=== PATIENT | male | born 1955 | race Caucasian/White ===

== ENCOUNTER 2020-07-27 15:32 | Emergency (ER) | payer OTHER ==
[~2020-07-27] VITALS: Ht 188 cm; Wt 99.7 kg
[2020-07-27] MEDS ORDERED: KETOROLAC 30 MG/ML VIAL. ONE (15:41)
[2020-07-27] MEDS ORDERED: ONDANSETRON PF 4 MG/2 ML VIAL. ONE (15:41)
[2020-07-27 17:35] LABS: BILIRUBIN,URINE NEG (NEG); CLARITY,URINE CLEAR; COLOR,URINE YELLOW; GLUCOSE,URINE NEG (NEG)
[2020-07-27 17:36] LABS: NITRITE,URINE NEG (NEG); UROBILINOGEN,URINE 0.2 mg/dL (0.2 mg/dL)
[2020-07-27 17:38] LABS: BACTERIA,URINE 0 /HPF (0-FEW); RBC,URINE 20-40 /HPF (0-2); WBC,URINE >40 /HPF (0-4)
[2020-07-27] MEDS ORDERED: CEPH500T PO (17:56)
--- NOTE | 2020-07-27 17:56 | PHYS DOC ---
General Adult EDM: Chief Complaint: PAIN ON URINATION HPI: HPI: 65-year-old male presents with increased urinary frequency. This started overnight. He has gone multiple times today which is unusual for him. He is type II diabetic. He has never had a kidney stone. He denies fever or chills. He has no pain. He has no other complaints this time. Review of Systems: Review of Systems: Constitutional: Denies fever or chills Eyes: Denies change in visual acuity HENT: Denies nasal congestion or sore throat Respiratory: Denies cough or shortness of breath Cardiovascular: Denies chest pain or edema GI: Denies abdominal pain, nausea, vomiting, bloody stools or diarrhea : Dysuria, increased urinary frequency. Musculoskeletal: Denies back pain or joint pain Integument: Denies rash Neurologic: Denies headache, focal weakness or sensory changes Endocrine: Denies polyuria or polydipsia Lymphatic: Denies swollen glands Psychiatric: Denies depression or anxiety Current Medications: Current Meds: Current Medications Medications (Trade) Dose Ordered Sig/Tomasz Start Time Stop Time Status Last Admin Dose Admin Ketorolac Tromethamine (Toradol 30mg Vial) 30 mg STK-MED ONCE 07/27/20 15:41 07/27/20 15:41 DC Ondansetron HCl (Zofran) 4 mg STK-MED ONCE 07/27/20 15:41 07/27/20 15:41 DC Allergies: Allergies: Allergies Coded Allergies Type Severity Reaction Last Updated Verified No Known Drug Allergies 07/27/20 No Physical Exam: PE: Constitutional: Well developed, well nourished, no acute distress, non-toxic appearance. [] HENT: Normocephalic, atraumatic, bilateral external ears normal, oropharynx moist, no oral exudates, nose normal. [] Eyes: PERRLA, EOMI, conjunctiva normal, no discharge. [] Neck: Normal range of motion, no tenderness, supple, no stridor. [] Cardiovascular: Heart rate regular rhythm, no murmur [] Lungs & Thorax: Bilateral breath sounds clear to auscultation [] Abdomen: Bowel sounds normal, soft, no tenderness, no masses, no pulsatile masses. [] Skin: Warm, dry, no erythema, no rash. [] Back: No tenderness, no CVA tenderness. [] Extremities: No tenderness, no cyanosis, no clubbing, ROM intact, no edema. [] Neurologic: Alert and oriented X 3, normal motor function, normal sensory function, no focal deficits noted. [] Psychologic: Affect normal, judgement normal, mood normal. [] Current Patient Data: Labs: Laboratory Tests Test 07/27/20 16:22 Urine Collection Type Unknown Urine Color Yellow Urine Clarity Clear Urine pH 6.0 Urine Specific [place] 1.025 Urine Protein Neg (NEG-TRACE) Urine Glucose (UA) Neg mg/dL (NEG) Urine Ketones (Stick) Neg mg/dL (NEG) Urine Blood Large (NEG) Urine Nitrite Neg (NEG) Urine Bilirubin Neg (NEG) Urine Urobilinogen Dipstick 0.2 mg/dL (0.2 mg/dL) Urine Leukocyte Esterase Small (NEG) Urine RBC 20-40 /HPF (0-2) Urine WBC >40 /HPF (0-4) Urine Squamous Epithelial Cells None /LPF Urine Bacteria 0 /HPF (0-FEW) EKG: EKG: [] Radiology/Procedures: Radiology/Procedures: [] Impressions: CT abdomen pelvis without contrast dated 07/27/2020. No comparison available. CLINICAL INDICATION: Blood in urine. TECHNIQUE: Contiguous axial imaging of the abdomen pelvis performed without the administration of IV or oral contrast. One or more of the following individualized dose reduction techniques were utilized for this examination: 1. Automated exposure control 2. Adjustment of the mA and/or kV according to patient size 3. Use of iterative reconstruction technique. FINDINGS: Limited images of lung bases are clear. Heart size is within normal limits. No pleural or pericardial effusion. Liver, spleen, pancreas, adrenal glands and gallbladder are unremarkable. Kidneys are symmetric in size. No stone or hydronephrosis. No inflammatory changes in the perinephric fat. Unopacified GI tract normal in caliber and contour. No bowel wall thickening. No inflammatory stranding in the mesentery. Appendix normal in caliber. No ascites or lymphadenopathy. Abdominal aorta normal in caliber. Images of pelvis show diffuse wall thickening of the urinary bladder. Prostate gland is moderately enlarged. No free fluid or pelvic lymphadenopathy. Bone windows show no acute finding. Mild multilevel spondylosis. IMPRESSION: 1. Diffuse wall thickening of the urinary bladder, nonspecific. Consider acute or chronic cystitis or intermittent bladder outlet obstruction. 2. Moderate prostatomegaly. 3. No renal stone or hydronephrosis. Electronically signed by: Maycol Grijalva MD (07/27/2020 6:07 PM) [id number] DICTATED AND SIGNED BY: MAYCOL GRIJALVA MD DATE: 07/27/201804 CC: CHRISS PETERSON DO; ASAEL MONCADA DO ~MTH0 0 Heart Score: C/O Chest Pain: N/A Risk Factors: Risk Factors: DM, Current or recent (<one month) smoker, HTN, HLP, family history of CAD, obesity. Risk Scores: Score 0 - 3: 2.5% MACE over next 6 weeks - Discharge Home Score 4 - 6: 20.3% MACE over next 6 weeks - Admit for Clinical Observation Score 7 - 10: 72.7% MACE over next 6 weeks - Early Invasive Strategies Course & Med Decision Making: Course & Med Decision Making Pertinent Labs and Imaging studies reviewed. (See chart for details) The patient's urinalysis has significant red and white blood cells. He has positive leukocyte esterase but negative nitrate. I will CT him to rule out kidney stone. I will treat the patient with Rocephin in the ED and Keflex for home. The patient CT scan is negative for kidney stone. He does have findings consistent with reactive cystitis and enlarged prostate. He is stable for discharge at this time. [] Maurilio Disclaimer: Maurilio Disclaimer: This electronic medical record was generated, in whole or in part, using a voice recognition dictation system. Departure Departure: Impression: Primary Impression: UTI (urinary tract infection) Qualified Codes: N30.01 - Acute cystitis with hematuria Disposition: HOME / SELF CARE / HOMELESS Condition: STABLE Referrals: ASAEL MONCADA DO (PCP) Patient Instructions: Urinary Tract Infection, [id number] Scripts Cephalexin (CEPHALEXIN) 500 Mg Tablet 1 TAB PO TID for UTI for 5 Days, #15 TAB Prov: CHRISS PETERSON DO 07/27/20 CHRISS PETERSON DO Jul 27, 2020 17:56
[2020-07-27] MEDS ORDERED: cefTRIAXone IM 1 GM VIAL IM ONE (18:00)
--- NOTE | 2020-07-27 18:09 | RAD ---
CT abdomen pelvis without contrast dated 07/27/2020. No comparison available. CLINICAL INDICATION: Blood in urine. TECHNIQUE: Contiguous axial imaging of the abdomen pelvis performed without the administration of IV or oral con trast. One or more of the following individualized dose reduction techniques were utilized for this examinat ion: 1. Automated exposure control 2. Adjustment of the mA and/or kV according to patient size 3. Use of iterative reconstruction technique. FINDINGS: Limited images of lung bases are clear. Heart size is within normal limits. No pleural or pericardial effusion. Liver, spleen, pancreas, adrenal glands and gallbladder are unremarkable. Kidneys are symmetric in size. No stone or hydronephrosis. No inflammatory changes in the perinephric fat. Unopacified GI tract normal in caliber and contour. No bowel wall thickening. No inflammatory strandi ng in the mesentery. Appendix normal in caliber. No ascites or lymphadenopathy. Abdominal aorta vanda l in caliber. Images of pelvis show diffuse wall thickening of the urinary bladder. Prostate gland is moderately en larged. No free fluid or pelvic lymphadenopathy. Bone windows show no acute finding. Mild multilevel spondylosis. IMPRESSION: 1. Diffuse wall thickening of the urinary bladder, nonspecific. Consider acute or chronic cystitis or intermittent bladder outlet obstruction. 2. Moderate prostatomegaly. 3. No renal stone or hydronephrosis. Electronically signed by: Maycol Grijalva MD (07/27/2020 6:07 PM) [id number]
[2020-07-27 18:20] VITALS: BP 131/60
== END 2020-07-27 18:25 | disposition home or self-care (01) ==
LOC: ER 15:32
DX: N39.0 Urinary tract infection, site not specified (principal)
CPT/HCPCS: 74176; 81001; 87086; 96372; 99284; J0696

== ENCOUNTER 2021-01-01 19:57 | Emergency (ER) | payer OTHER ==
[~2021-01-01] VITALS: Ht 188 cm; Wt 100.0 kg
[~2021-01-01 19:57] MED LIST: CEPH500T PO
[2021-01-01 20:00] VITALS: BP 150/82
[2021-01-01 20:50] LABS: BILIRUBIN,URINE NEG (NEG); CLARITY,URINE CLEAR; COLOR,URINE YELLOW; GLUCOSE,URINE NEG (NEG); NITRITE,URINE NEG (NEG); UROBILINOGEN,URINE 0.2 mg/dL (0.2 mg/dL)
[2021-01-01 20:51] LABS: BACTERIA,URINE 0 /HPF (0-FEW)
--- NOTE | 2021-01-01 21:14 | PHYS DOC ---
Past History Past Medical History: Diabetes, Glaucoma, High Cholesterol Additional Past Medical Histor: OVER ACTIVE BLADDER Past Surgical History: Knee Replacement Alcohol Use: None Drug Use: None General Adult EDM: Chief Complaint: URINARY RETENTION HPI: HPI: 65-year-old male presents with report of sudden urinary retention that started today. Patient reports recently starting a new medication today for his overactive bladder. Patient states "I have not peed all day. Patient called urologist and advised him to present directly to the ER for further evaluation. Denies any fever or chills. Denies history of urinary tract infections. Review of Systems: Review of Systems: Constitutional: Denies fever or chills Eyes: Denies redness or eye pain HENT: Denies nasal congestion or sore throat Respiratory: Denies cough or shortness of breath Cardiovascular: Denies chest pain or palpitations GI: Reports suprapubic abdominal pain; denies nausea or vomiting : Reports suprapubic fullness and urinary urgency Musculoskeletal: Denies back pain or joint pain Integument: Denies rash or skin lesions Neurologic: Denies headache, focal weakness or sensory changes Complete systems were reviewed and found to be within normal limits, except as documented in this note. Allergies: Allergies: Allergies Coded Allergies Type Severity Reaction Last Updated Verified No Known Drug Allergies 07/27/20 No Physical Exam: PE: Constitutional: Well developed, well nourished, no acute distress, non-toxic appearance HENT: Normocephalic, atraumatic Eyes: Conjunctiva normal, no discharge Neck: Normal range of motion,supple Lungs & Thorax: No respiratory distress, equal chest rise and fall Abdomen: Soft, suprapubic tenderness and fullness Skin: Warm, dry, no erythema, no rash Back: No tenderness, no CVA tenderness Extremities: No tenderness, ROM intact, no edema Neurologic: Alert and oriented X 3, no focal deficits noted Psychologic: Affect normal, judgment normal Current Patient Data: Labs: Laboratory Tests Test 01/01/21 20:25 Urine Collection Type Unknown Urine Color Yellow Urine Clarity Clear Urine pH 5.5 Urine Specific [place] 1.015 Urine Protein Neg (NEG-TRACE) Urine Glucose (UA) Neg mg/dL (NEG) Urine Ketones (Stick) Neg mg/dL (NEG) Urine Blood Mod (NEG) Urine Nitrite Neg (NEG) Urine Bilirubin Neg (NEG) Urine Urobilinogen Dipstick 0.2 mg/dL (0.2 mg/dL) Urine Leukocyte Esterase Neg (NEG) Urine RBC 3-5 /HPF (0-2) Urine WBC 1-4 /HPF (0-4) Urine Squamous Epithelial Cells None /LPF Urine Bacteria 0 /HPF (0-FEW) Vital Signs: Vital Signs Date Time Temp Pulse Resp B/P (MAP) Pulse Ox O2 Delivery O2 Flow Rate FiO2 01/01/21 20:00 98.9 72 18 150/82 (104) 97 Room Air EKG: EKG: [] Radiology/Procedures: Radiology/Procedures: [] Heart Score: C/O Chest Pain: N/A Course & Med Decision Making: Course & Med Decision Making Pertinent Lab studies reviewed. (See chart for details) Patient presents with HPI and physical exam concerning for urinary retention. Leon catheter placed with interval improvement of symptoms after drainage of approximately 1 L of urine. UA without signs of infection. Leg bag applied. Patient stable for discharge with outpatient follow-up with PCP/urology. Discussed findings and plan with patient and family, who acknowledge understanding and agreement. Maurilio Disclaimer: Maurilio Disclaimer: This electronic medical record was generated, in whole or in part, using a voice recognition dictation system. Departure Departure: Impression: Primary Impression: Urinary retention Disposition: HOME / SELF CARE / HOMELESS Condition: IMPROVED Referrals: ASAEL MONCADA DO (PCP) Patient Instructions: Leon Catheter Care, Adult, Urinary Retention, Acute, Male, [id number] Additional Instructions: Please call and make appointment to follow-up with your urologist for further evaluation and removal of your Leon catheter. MAGDALENE MCCLELLAND DO Jan 01, 2021 21:14
== END 2021-01-01 21:30 | disposition home or self-care (01) ==
LOC: ER 19:57
DX: R33.9 Retention of urine, unspecified (principal); R39.15 Urgency of urination; R10.30 Lower abdominal pain, unspecified; E11.39 Type 2 diabetes mellitus with other diabetic ophthalmic complication; E78.00 Pure hypercholesterolemia, unspecified
CPT/HCPCS: 51702; 81001; 99284

== ENCOUNTER 2021-07-09 05:37 | Emergency (ER) | payer MEDICARE, OTHER ==
[~2021-07-09] VITALS: Ht 188 cm; Wt 98.8 kg
--- NOTE | 2021-07-09 06:36 | PHYS DOC ---
Past History Past Medical History: Diabetes, Glaucoma, High Cholesterol Additional Past Medical Histor: OVER ACTIVE BLADDER Past Surgical History: Knee Replacement Alcohol Use: None Drug Use: None Adult General Chief Complaint Chief Complaint: URINE CATHETER PROBLEM HPI HPI Patient is a 65 year old male who presents with complaint of urethral bleeding. The patient states that he underwent a Rezum procedure yesterday with Dr. Sandoval of urology for treatment of enlarged prostate. The patient was discharged with an indwelling Leon catheter in place. The patient states that he had mild seepage of blood around the catheter yesterday evening, however upon awakening this morning he states that he had increased bleeding with passage of clots. Patient states that he was instructed to go to the emergency department for any increase in bleeding. Denies penile or pelvic pain currently. States that the catheter does not seem to be occluded as he is still passing blood and urine through the catheter. Review of Systems Review of Systems Constitutional: Denies fever or chills [] Eyes: Denies change in visual acuity, redness, or eye pain [] HENT: Denies nasal congestion or sore throat [] Respiratory: Denies cough or shortness of breath [] Cardiovascular: Denies chest pain or edema [] GI: Denies abdominal pain, nausea, vomiting, bloody stools or diarrhea [] : Urethral bleeding, hematuria, denies penile or testicular pain [] Musculoskeletal: Denies back pain or joint pain [] Integument: Denies rash or skin lesions [] Neurologic: Denies headache, focal weakness or sensory changes [] All other systems were reviewed and found to be within normal limits, except as documented in this note. Allergies Allergies Allergies Coded Allergies Type Severity Reaction Last Updated Verified ciprofloxacin Allergy Unknown Rash 07/09/21 Yes Physical Exam Physical Exam Constitutional: Well developed, well nourished, no acute distress, non-toxic appearance. [] HENT: Normocephalic, atraumatic, bilateral external ears normal, oropharynx moist, no oral exudates, nose normal. [] Eyes: PERRLA, EOMI, conjunctiva normal, no discharge. [] Neck: Normal range of motion, no tenderness, supple, no stridor. [] Cardiovascular:Heart rate regular rhythm, no murmur [] Lungs & Thorax: Bilateral breath sounds clear to auscultation [] Abdomen: Bowel sounds normal, soft, no tenderness, no masses, no pulsatile masses. [] : Indwelling Leon catheter in place, persistent urethral oozing of blood with clotted blood present at urethral meatus around the Leon catheter. Leon catheter appears to be draining normally with gross blood and urine present in Leon catheter bag. No evidence of penile trauma. Skin: Warm, dry, no erythema, no rash. [] Back: No tenderness, no CVA tenderness. [] Extremities: No tenderness, no cyanosis, no clubbing, ROM intact, no edema. [] Neurologic: Alert and oriented X 3, normal motor function, normal sensory function, no focal deficits noted. [] Current Patient Data Vital Signs Vital Signs Date Time Temp Pulse Resp B/P (MAP) Pulse Ox O2 Delivery O2 Flow Rate FiO2 07/09/21 05:42 98.0 72 18 127/87 (100) 95 Room Air Lab Results Not performed EKG EKG Not performed [] Radiology/Procedures Radiology/Procedures Not performed [] Heart Score C/O Chest Pain: No Risk Factors: Risk Factors: DM, Current or recent (<one month) smoker, HTN, HLP, family history of CAD, obesity. Risk Scores: Risk Factors: DM, Current or recent (<one month) smoker, HTN, HLP, family history of CAD, obesity. Course & Med Decision Making Course & Med Decision Making Pertinent Labs and Imaging studies reviewed. (See chart for details) Patient's vital signs are stable. Patient has small but persistent using around the urethral catheter. Patient's Leon catheter was flushed and appears to be draining normally. I consulted Dr. Noel, on-call physician for Dr. Sandoval, regarding patient case. He recommended instilling additional sterile water 5 to 10 cc into the Leon balloon and stated that the patient could contact the office once it opens at 0800 and schedule a time to come in this morning to have this reevaluated by Dr. Sandoval. This was communicated to the patient who voiced understanding and agreement with the plan. I recommended that the patient return to the emergency department for any worsening symptoms. [] Dragon Disclaimer Dragon Disclaimer This electronic medical record was generated, in whole or in part, using a voice recognition dictation system. Departure Departure: Impression: Primary Impression: Post-op bleeding Disposition: HOME / SELF CARE / HOMELESS Condition: STABLE Referrals: ASAEL MONCADA DO (PCP) Patient Instructions: Postsurgical Bleeding Additional Instructions: Call the office of Dr. Sandoval this morning at 0800 to schedule an appointment to be seen today. Return to the emergency department for any worsening symptoms. Problem Qualifiers Primary Impression: Post-op bleeding Surgical complication system/body Area: genitourinary Procedure type: genitourinary Qualified Codes: N99.820 - Postprocedural hemorrhage of a genitourinary system organ or structure following a genitourinary system procedure BERTHA GRANT MD July 09, 2021 06:36
[2021-07-09 07:00] VITALS: BP 121/71
== END 2021-07-09 07:07 | disposition home or self-care (01) ==
LOC: ER 05:37
DX: N99.820 Postprocedural hemorrhage of a genitourinary system organ or structure following a genitourinary system procedure (principal); E11.39 Type 2 diabetes mellitus with other diabetic ophthalmic complication; H42 Glaucoma in diseases classified elsewhere; E78.00 Pure hypercholesterolemia, unspecified; Z88.1 Allergy status to other antibiotic agents
CPT/HCPCS: 99281